=== PATIENT | female | born 1945 | race Caucasian/White ===

== ENCOUNTER → 2020-07-30 | Outpatient (CLI) | payer MEDICARE, OTHER ==
[~2020-07-30] MED LIST: IOHEXOL 240 MG/ML 50ML VIAL. ONE; IOHEXOL 240 MG/ML 50ML VIAL. PO ONE; IOHEXOL 300 MG/ML 75 ML VIAL. IV ONE
[2020-07-30 11:12] LABS: BASO % 1 % (0-3); EOS # 0.1 x10^3/uL (0.0-0.7); EOS % 2 % (0-3); HEMATOCRIT 32.3 % (36.0-47.0); HEMOGLOBIN 10.3 g/dL (12.0-15.5); LYMPH # 1.4 x10^3/uL (1.0-4.8); LYMPH % 25 % (24-48); MEAN CORPUSCULAR HEMOGLOBIN 27 pg (25-35); MEAN CORPUSCULAR HGB CONC 32 g/dL (31-37); MEAN CORPUSCULAR VOLUME 86 fL (79-100); MONO # 0.4 x10^3/uL (0.0-1.1); MONO % 8 % (0-9); NEUT # 3.7 x10^3uL (1.8-7.7); NEUT % 65 % (31-73); PLATELET COUNT 534 x10^3/uL (140-400); RED BLOOD COUNT 3.77 x10^6/uL (3.50-5.40); RED CELL DISTRIBUTION WIDTH 15.9 % (11.5-14.5); WHITE BLOOD COUNT 5.7 x10^3/uL (4.0-11.0)
[2020-07-30 11:30] LABS: CALCIUM 9.2 mg/dL (8.5-10.1); CREATININE 1.2 mg/dL (0.6-1.0); GFR 43.7; POTASSIUM 4.3 mmol/L (3.5-5.1)
--- NOTE | 2020-07-30 16:39 | RAD ---
CT abdomen pelvis without contrast dated 07/30/2020. No comparison available. CLINICAL INDICATION: Pain for 2 weeks. TECHNIQUE: Contiguous axial imaging the M pelvis performed following the ministration of oral contrast only. One or more of the following individualized dose reduction techniques were utilized for this examination: 1. Automated exposure control 2. Adjustment of the mA and/or kV according to patient size 3. Use of iterative reconstruction technique FINDINGS: Limited images of lung bases show a noncalcified pulmonary nodule in the right middle lobe that measures about 7 mm maximum dimension. Nonspecific groundglass density in the right lower lobe posterior medially on image 1 measures about 1.4 cm. Heart size is within normal limits. No pleural or pericardial effusion. Solid abdominal viscera not well evaluated in the absence of contrast material. No apparent attenuation abnormality within the liver or spleen. Biliary tree normal in caliber. Gallbladder unremarkable. Spleen is normal in size. Pancreas is somewhat atrophic. Adrenal glands unremarkable. There is a prominent duodenal diverticulum. Kidneys are symmetric in size and attenuation. No calcific renal or ureteral stone. No hydronephrosis. There is some mild inflammatory stranding in the bilateral perinephric fat, nonspecific. Partially opacified GI tract normal in caliber and contour. No focal bowel wall thickening. There are scattered diverticula within the distal colon. No paracolonic inflammatory changes. The appendix is normal in caliber. No ascites or lymphadenopathy. The abdominal aorta normal in caliber. Images of pelvis are somewhat limited by beam hardening artifact from right hip prosthesis. Suggestion of mild diffuse wall thickening of the urinary bladder. The uterus and adnexa are unremarkable. No free fluid or pelvic lymphadenopathy. Bone windows show no acute findings. Mild multilevel spondylosis. IMPRESSION: 1. No acute abnormality of abdomen or pelvis. Normal appendix. 2. Diverticulosis with no evidence of acute diverticulitis. 3. There is an indeterminate noncalcified pulmonary nodule in the right middle lobe measuring 7 mm. Follow-up imaging in 6 months to ensure stability. 4. Mild wall thickening of the urinary bladder, also nonspecific. Consider acute or chronic cystitis. Electronically signed by: Zackary Chen MD (07/30/2020 4:36 PM) [id number]
== END ==
LOC: CT 10:13
PROVIDERS: ATTEND Family Medicine
DX: K57.90 Diverticulosis of intestine, part unspecified, without perforation or abscess without bleeding (principal)
CPT/HCPCS: 36415; 74176; 80048; 85025

== ENCOUNTER → 2021-02-24 | Outpatient (CLI) | payer MEDICARE, OTHER ==
--- NOTE | 2021-02-24 10:52 | RAD ---
INDICATION: Screening for osteopenia/osteoporosis. Postmenopausal evaluation. COMPARISON: None. TECHNIQUE: Bone densitometry was performed through the lumbar spine and proximal femur. IMPRESSION: Lumbar Spine: BMD: 0.84 T-Score: -2.8 Range: Osteoporotic Proximal Femur: BMD: 0.64 T-Score: -2.6 Range: Osteoporotic World Health Organization Criteria for Bone Density: T-Score: > -1.0: Normal Range < -1.0 to -2.5: Osteopenic Range < -2.5: Osteoporotic Range Electronically signed by: Timothy Ramsey MD (02/24/2021 10:49 AM) [id number]
== END ==
LOC: DXRAD 10:02
PROVIDERS: ATTEND Family Medicine
DX: M81.0 Age-related osteoporosis without current pathological fracture (principal)
CPT/HCPCS: 77080

== ENCOUNTER → 2021-11-21 | Outpatient (CLI) | payer MEDICARE, OTHER ==
--- NOTE | 2021-11-21 15:51 | RAD ---
US EXT NON VASC RIGHT Clinical Indication: Reason: SOFT TISSUE NODULE RT LOWER CALF Comparison: None. Technique: Real-time ultrasound imaging of the right calf area of concern is performed. Findings/ impression: There is moderate subcutaneous edema in the mid medial right calf. No solid mass or organized fluid c ollection is identified. Electronically signed by: Anthony Duran MD (11/21/2021 3:48 PM) [id number]
== END ==
LOC: US 14:58
PROVIDERS: ATTEND Family Medicine
DX: R22.41 Localized swelling, mass and lump, right lower limb (principal)
CPT/HCPCS: 76881